=== PATIENT | male | born 1985 | race Two or more races ===

== ENCOUNTER 2023-09-03 16:06 | Emergency (ER) | payer OTHER ==
[~2023-09-03] VITALS: Ht 185.4 cm; Wt 72.7 kg
[2023-09-03 18:36] VITALS: BP 127/81; PULSE 98; RESP 18; TEMP 97.5; O2SAT 96
[2023-09-03] MEDS ORDERED: ACE3T PO (18:40)
[2023-09-03 19:24] LABS: Basophils # (auto) 0.1 10 ^3/uL (0-0.2); Basophils % (auto) 0.7 % (0.0-2.0); Eosinophils # (auto) 0 10 ^3/uL (0-0.8); Eosinophils % (auto) 0.2 % (0.0-7.0); Hematocrit 42.4 % (41.0-53.0); Hemoglobin 14.6 g/dL (13.5-17.5); Lymphocytes # (auto) 1.6 10 ^3/uL (0.4-5.4); Lymphocytes % (auto) 14.9 % (10.0-50.0); Mean Corpuscular Hemoglobin 29.2 pg (28.0-32.0); Mean Corpuscular Hgb Conc. 34.4 g/dL (32.0-36.0); Mean Corpuscular Volume 84.9 fL (80.0-100.0); Monocytes # (auto) 0.8 10 ^3/uL (0-1.3); Monocytes % (auto) 7.4 % (0.0-12.0); Neutrophils % (auto) 76.8 % (37.0-80.0); Nucleated Red Blood Cells % 0.1 %; Red Cell Distribution Width 12.9 % (11.8-14.3); White Blood Cell 10.5 10^3/uL (4.4-10.8)
[2023-09-03 19:35] LABS: Chloride 105 mmol/L (98-107); Potassium 3.9 mmol/L (3.5-5.1); Sodium 138 mmol/L (136-145)
[2023-09-03 19:36] LABS: Anion Gap 4 (5-15); Carbon Dioxide 29 mmol/L (20-30)
[2023-09-03 19:37] LABS: Calcium 10.1 mg/dL (8.7-10.4)
[2023-09-03 19:41] LABS: Glucose 132 mg/dL (74-106)
[2023-09-03 19:42] LABS: BUN/Creatinine Ratio 9.4 (10.0-20.0); Blood Urea Nitrogen 8 mg/dL (9-23)
== END 2023-09-03 18:41 | disposition home or self-care (01) ==
LOC: ER 16:06
DX: S52.091A Other fracture of upper end of right ulna, initial encounter for closed fracture (principal); Z98.890 Other specified postprocedural states; W01.0XXA Fall on same level from slipping, tripping and stumbling without subsequent striking against object, initial encounter; Y93.89 Activity, other specified; Y92.89 Other specified places as the place of occurrence of the external cause; Y99.8 Other external cause status
CPT/HCPCS: 29105; 36415; 73080; 80048; 85025

== ENCOUNTER 2023-09-09 12:07 | Day surgery (SDC) | payer OTHER ==
[~2023-09-09] VITALS: Ht 185.4 cm; Wt 74.8 kg
[~2023-09-09 12:07] MED LIST: ACE3T PO; NAP500T PO
[2023-09-09] MEDS ORDERED: fentaNYL CITRATE 100 MCG/2 ML VL ONE ×2 (13:02→14:45)
[2023-09-09] MEDS ORDERED: PROPOFOL 10 MG/ML 20 ML IV ONE ×2 (13:02→14:46)
[2023-09-09] MEDS ORDERED: ONDANSETRON HCL 4 MG/2 ML VIAL ONE ×2 (13:02→14:46)
[2023-09-09] MEDS ORDERED: GLYCOPYRROLATE 0.2 MG/ML 1ML VIAL ONE (13:02)
[2023-09-09] MEDS ORDERED: KETOROLAC TROMETH 30 MG/ML 1ML VIAL ONE (13:02)
[2023-09-09] MEDS ORDERED: LIDOCAINE 1% INJ PF 5ML AMP ONE ×2 (13:02→14:46)
[2023-09-09] MEDS ORDERED: KETAMINE 50mg/ML 1ml syringe ONE (13:02)
[2023-09-09] MEDS ORDERED: LIDOCAINE 2% (LOCAL ANESTH.) PF 5ml SDV ONE (13:02)
[2023-09-09] MEDS ORDERED: DexAMETHasone SOD PHOS 10MG/1ML VIAL INJ ONE ×2 (13:02→13:04)
[2023-09-09] MEDS ORDERED: ceFAZolin 2 GM/D5W50ml 50 ML IV ONE (13:15)
[2023-09-09] MEDS ORDERED: ESMOLOL HCL 10 ML IV ONE (13:15)
[2023-09-09] MEDS ORDERED: DexAMETHasone SOD PHOS 4 MG/1ML SDV INJ ONE (13:57)
[2023-09-09] MEDS ORDERED: CELECOXIB 100 MG CAP PO ONE (14:00)
[2023-09-09] MEDS ORDERED: ACETAMINOPHEN IV 1000 MG/100ML (10MG/ML) IV ONE (14:00)
[2023-09-09] MEDS ORDERED: GABAPENTIN 400 MG CAP PO ONE (14:00)
[2023-09-09] MEDS ORDERED: MEPERIDINE HCL (25 MG/ML) 1ML VIAL ONE (14:45)
[2023-09-09] MEDS ORDERED: MIDAZOLAM HCL 2MG/2ML 2ml VIAL (1mg/ml) ONE (14:45)
[2023-09-09] MEDS ORDERED: SODIUM CHLORIDE LOCK 10 ML ONE (14:46)
[2023-09-09] MEDS ORDERED: LIDOCAINE 2% JELLY 11ml (GLYDO) ONE (14:56)
[2023-09-09] MEDS: ROPIVACAINE 0.5% (5MG/ML) 20ML AMPULE IJ ONE (16:10)
[2023-09-09 16:16] VITALS: RESP 16; TEMP 97.6; O2SAT 95
[2023-09-09] MEDS ORDERED: KETOROLAC TROMETH 30 MG/ML 1ML VIAL IV ONE (16:30)
[2023-09-09] MEDS ORDERED: fentaNYL CITRATE 100 MCG/2 ML VL IV PRN (16:30)
[2023-09-09] MEDS ORDERED: HYDROmorphone HCL 2 MG/ML VL/or syr IV PRN ×2 (16:30)
[2023-09-09] MEDS ORDERED: METOCLOPRAMIDE HCL 5MG/ml INJ 2ml VIAL IV ONE (16:30)
[2023-09-09] MEDS ORDERED: MORPHINE SULFATE INJ 2 MG/ml SYRG IV PRN (16:30)
[2023-09-09 17:08] VITALS: BP 147/93; PULSE 71; RESP 14; O2SAT 97
== END 2023-09-09 17:22 | disposition home or self-care (01) ==
LOC: SUR 12:07
PROVIDERS: ATTEND Orthopaedic Surgery
DX: S52.031A Displaced fracture of olecranon process with intraarticular extension of right ulna, initial encounter for closed fracture (principal); X58.XXXA Exposure to other specified factors, initial encounter; Y93.89 Activity, other specified; Y92.89 Other specified places as the place of occurrence of the external cause; Y99.8 Other external cause status; Z79.899 Other long term (current) drug therapy; Z90.79 Acquired absence of other genital organ(s); Z98.890 Other specified postprocedural states
CPT/HCPCS: 24685; 73070; C1713; J0690; J1100; J1885; J2001; J2175; J2250; J2405; J2704; J2795; J3010; 76000